=== PATIENT | female | born 1955 | race African-American/Black ===

== ENCOUNTER → 2017-01-16 | Outpatient (CLI) | payer MEDICARE, BC ==
--- NOTE | 2017-01-16 16:18 | KCIC ---
MR of the right knee Indication: Right knee pain. Technique: The standard multiplanar sequences are obtained. Findings: Medial meniscus: Mild signal but no evidence of a tear. Lateral meniscus: Intact. Anterior cruciate ligament: Intact Posterior cruciate ligament: Intact Medial collateral ligament: Intact. Iliotibial band: Intact. Posterolateral structures: Fibular collateral ligament, biceps tendon and popliteus tendon are intact. Extensor mechanism: Intact. Fluid: Small joint effusion. Poorly defined structure within the suprapatellar recess suspicious for a loose body measuring 12 mm. Articular cartilage -patellofemoral joint: Severe cartilage loss, particularly at the lateral aspect. -medial compartment: Severe medial femoral condyle cartilage loss. -lateral compartment: Severe cartilage loss, with subchondral bone exposure at the central lateral tibial plateau and central weightbearing lateral femoral condyle. Bones: No significant lesion or acute fracture. Soft tissue: Unremarkable Impression: 1. Severe primary osteoarthritis. 2. Probable loose body in the suprapatellar recess. 3. No evidence of meniscal tear or internal derangement. Electronically signed by: Madi Sheridan MD (01/16/2017 4:14 PM) [facility]
== END | disposition home or self-care (01) ==
LOC: KCIC MRI 14:57
PROVIDERS: ATTEND Nurse Practitioner Gerontology
DX: M17.11 Unilateral primary osteoarthritis, right knee (principal)
CPT/HCPCS: 73721

== ENCOUNTER 2017-02-01 05:50 | Day surgery (SDC) | payer MEDICARE, BC ==
[~2017-02-01] VITALS: Ht 165.1 cm; Wt 47.2 kg
[~2017-02-01 05:50] MED LIST: ASPI-482 PO; CETI10TA22 PO; CYCL50CA3 PO; LENA20CA PO; MULT-460 PO; PREG150C PO; VALA500T5 PO
[2017-02-01] MEDS ORDERED: DEXA4VIA37 PO (06:53)
[2017-02-01] MEDS ORDERED: fentaNYL PF VIAL 100 MCG/2 ML VIAL IV PRN ×2 (07:00)
[2017-02-01] MEDS ORDERED: ONDANSETRON PF 4 MG/2 ML VIAL. IV PRN (07:00)
[2017-02-01] MEDS ORDERED: IV RINGERS,LACTATED 1000ML 1,000 ML IV SCH (07:00)
[2017-02-01] MEDS ORDERED: HYDROmorphone 2 MG/ML VIAL IV PRN (07:00)
[2017-02-01] MEDS ORDERED: LIDOCAINE 1% 1 ML SYRINGE. ID PRN (07:00)
[2017-02-01] MEDS ORDERED: MORPHINE SULFATE 2 MG/ML DISP.SYRIN. IV PRN (07:00)
[2017-02-01] MEDS ORDERED: PROCHLORPERAZINE 10 MG/2 ML VIAL. IV PRN (07:00)
[2017-02-01] MEDS ORDERED: PROPOFOL 20 ML IV ONE (07:01)
[2017-02-01] MEDS ORDERED: ONDANSETRON PF 4 MG/2 ML VIAL. ONE (07:01)
[2017-02-01] MEDS ORDERED: MIDAZOLAM HCL/PF 2 MG/2 ML VIAL. ONE (07:01)
[2017-02-01] MEDS ORDERED: LIDOCAINE 2% PF Vial for OR 5 ML VIAL. ONE (07:01)
[2017-02-01] MEDS ORDERED: DEXAMETHASONE SOD PHOS 20 MG/5 ML VIAL. ONE (07:01)
[2017-02-01] MEDS ORDERED: fentaNYL PF VIAL 100 MCG/2 ML VIAL ONE (07:02)
[2017-02-01] MEDS ORDERED: BUPIVACAINE MPF 0.5% 30 ML VIAL. ONE (07:12)
[2017-02-01] MEDS ORDERED: SCOPOLAMINE 1.5MG PATCH. TD SCH (07:30)
[2017-02-01] MEDS ORDERED: PHENYLEPHRINE in 0.9% NACL PF 1 MG/10 ML DISP.SYRIN. IV ONE (07:50)
[2017-02-01] MEDS ORDERED: PROCHLORPERAZINE 10 MG/2 ML VIAL. ONE (08:38)
--- NOTE | 2017-02-01 08:52 | PDOC4 ---
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 endotracheal Estimated blood loss less than 10 mL Complications: None Findings: Above Operative indications: Patient is a 62-year-old female with pain and swelling in her knee she identified the main source of the pain is above her kneecap corresponding to a large calcified fragment that appears to be a loose body in the knee and she also noted some medial joint line tenderness increased with activity. I had gone over with her the treatment options removal loose body and evaluation of the rest of the knee. She is aware that while I can treat some mechanical issues of loose cartilage meniscal tear etc. that I cannot undo any degenerative changes present in the knee joint and those would have to be dealt with on an ongoing symptomatic basis. All her questions were answered consent was obtained and she agrees to proceed with operative evaluation and treatment. Operative text: Patient was identified procedure verified patient placed in the supine position on the operating table. After adequate amounts of general endotracheal anesthesia were administered a thigh tourniquet was placed and the right lower extremity was prepped and draped in standard sterile fashion. After timeout was performed patient procedure identified and verified, the right lower extremity was exsanguinated by Esmarch bandage tourniquet inflated to 300 mmHg anterolateral portal was established. A medial portal established using spinal needle localization and the knee joint was systematically examined. A large loose body was noted in the suprapatellar pouch area and had a small tissue attachment above the patella. With the loose body captured with a spinal needle the attachment was removed with the arthroscopic shaver and the loose body measuring approximately 2.5 cm x 1.3 cm x 1 cm was removed from an enlarged lateral portal in its entirety. She was noted to have significant grade 4 chondromalacia over the lateral patellar facet and to a smaller extent of about grade 3 chondromalacia over the trochlear groove she had grade 3 chondromalacia on the medial femoral condyle none of which require debridement medial meniscus was probed and found to be intact as was the anterior cruciate ligament. In the lateral compartment however she had significant chondral flap tears over the weightbearing surface of the lateral femoral condyle as well as the lateral tibial plateau which were trimmed back to stable tissue using arthroscopic shaver likewise had a free edge tear lateral meniscus which was trimmed back to stable tissue with arthroscopic punch and lashonda and all cartilage fragments were removed. The knee was again thoroughly examined no further loose bodies were noted in the gutters or suprapatellar pouch area the knee joint was drained of arthroscopic fluid portals were closed with nylon suture the knee was infused with 30 mL of 0.5% plain Marcaine sterile dressings were applied by an John wrap toes were noted be warm and pink following deflation of the tourniquet patient was extubated transferred to postop holding in stable condition having tolerated procedure well KEERTHI AMOS MD Feb 01, 2017 08:52
--- NOTE | 2017-02-01 08:53 | DISCH ---
DISCHARGE INSTRUCTIONS Condition on Discharge Condition on Discharge: Stable Activity After Discharge Activity Instructions for Disc: Other, see below Other activity instructions: slow advance activities as tolerated Weight Bearing Status after Di: Full weight bearing Diet after Discharge Diet after Discharge: Regular Wound Incision Care Wound/Incision Care: Ice to area for comfort, Change dressing Other wound/incision instructi: remove dressing in 2 days may then shower Contacting the DRJaymie after DC Call your doctor for: Concerns you may have Follow-Up Follow up with: Rishi 7-10 days KEERTHI AMOS MD Feb 01, 2017 08:53
[2017-02-01] MEDS ORDERED: HYDR-965 PO (08:54)
[2017-02-01 09:55] VITALS: BP 130/70
== END 2017-02-01 10:25 | disposition home or self-care (01) ==
LOC: SURG 05:50
PROVIDERS: ATTEND Orthopaedic Surgery
DX: S83.281A Other tear of lateral meniscus, current injury, right knee, initial encounter (principal); M23.41 Loose body in knee, right knee; M94.261 Chondromalacia, right knee; X58.XXXA Exposure to other specified factors, initial encounter; Y93.89 Activity, other specified; Y92.89 Other specified places as the place of occurrence of the external cause; Y99.8 Other external cause status; G62.9 Polyneuropathy, unspecified; E66.9 Obesity, unspecified; Z68.44 Body mass index [BMI] 60.0-69.9, adult; Z87.39 Personal history of other diseases of the musculoskeletal system and connective tissue; Z88.1 Allergy status to other antibiotic agents
CPT/HCPCS: 29881; J0690; J0780; J1100; J2250; J2370; J2405; J2704; J3010; J3490; J2001